=== PATIENT | female | born 1985 | race Caucasian/White ===

== ENCOUNTER 2023-05-21 21:06 | Outpatient (REF) | payer BC, OTHER, SELFPAY ==
[2023-05-27 11:09] LABS: Age Gdln ACOG Testing Note (.); HPV Aptima Negative (Negative); IGP, Aptima HPV, rfx 16/18,45 Note (.)
== END 2023-05-21 21:07 | disposition home or self-care (01) ==
LOC: LAB 21:06
PROVIDERS: Visit Provider Physician Assistant
DX: Z01.419 Encounter for gynecological examination (general) (routine) without abnormal findings (principal)
CPT/HCPCS: 87624; G0145

== ENCOUNTER 2024-06-02 19:48 | Outpatient (REF) | payer BC, OTHER, SELFPAY ==
--- OUTSIDE RECORDS SUMMARY | 2024-06-02 19:57 | XMS_ITS | CCD ---
Author Organization [facility] CliniSymo Care Team Providers Care Meat Packer Name Role Phone NON STAFF Primary Care Unavailable Kee Morales Admitting Unavailable Kee Morales Attending Unavailable MARBELLA ., DR URBAN Attending Unavailable REQUEST, DR PROCTOR LISTED Primary Care Unavaila ble MARBELLA ., DR URBAN Consulting Unavailable MARBELLA ., DR URBAN Admitting Unavailable MARBELLA ., DR URBAN Attending Unavailable MARBELLA ., DR URBAN Consulting Unavailable REQUEST, DR PROCTOR LISTED Primary Care Unavaila ble MARBELLA ., DR URBAN Admitting Unavailable MARBELLA ., DR URBAN Attending Unavailable MARBELLA ., DR URBAN Consulting Unavailable REQUEST, NONE LISTED Primary Care Unavaila ble MARBELLA ., DR URBAN Admitting Unavailable ZIEBER, DR SHERRY Snow Consulting Unavailable MARBELLA ., DR URBAN Attending Unavailable MARBELLA ., DR URBAN Consulting Unavailable REQUEST, NONE LISTED Primary Care Unavaila ble MARBELLA ., DR URBAN Admitting Unavailable MARBELLA ., DR URBAN Attending Unavailable HAPPY, DR ANASTACIO Rao Consulting Unavailable REQUEST, DR PROCTOR LISTED Primary Care Unavaila ble MARBELLA ., DR URBAN Admitting Unavailable MARBELLA ., DR URBAN Consulting Unavailable MARBELLA ., DR URBAN Attending Unavailable REQUEST, DR PROCTOR LISTED Primary Care Unavaila ble MARBELLA ., DR URBAN Admitting Unavailable MARBELLA ., DR URBAN Attending Unavailable REQUEST, DR PROCTOR LISTED Primary Care Unavaila ble MARBELLA ., DR URBAN Consulting Unavailable MARBELLA ., DR URBAN Admitting Unavailable MARBELLA ., DR URBAN Attending Unavailable REQUEST, NONE LISTED Primary Care Unavaila ble MARBELLA ., DR URBAN Consulting Unavailable MARBELLA ., DR URBAN Admitting Unavailable TORSTEN II, ANÍBAL Consulting Unavailable ROBI SANCHES Consulting Unavailable TANYA CHONG Attending Unavailable TANYA CHONG Attending Unavailable Problems Active Problems Problem Classification Problem Date Documented Da te Episodic/Chronic Abdominal pain (4 sources) Pelvic and perineal pain; Translations: [PELVIC AND PERINEAL PAIN] Onset: 04-11-2022 Episodic Deficiency and other anemia (1 source) Anemia, unspecified; Translations: [ANEMIA UNSPECIFIED] Onset: 04-16-2022 Episodic Ovarian cyst (5 sources) Unspecified ovarian cyst, left side; Translations: [UNSPECIFIED OVARIAN CYST LEFT SIDE] Onset: 02-28-2022 Episodic Unclassified (1 source) CONTACT W/AND (SUSP) EXPOS COVID-19; Translations: [CONTACT W/AND (SUSP) EXPOS COVID-19] Onset: 04-12-2022 Past or Other Problems Problem Classification Problem Date Documented Date Episodic/Chronic Immunizations and screening for infectious disease (5 sources) Encounter for screening for human papillomavirus (HPV); Translations: [Encounter for screening for infections with a predominantly sexual mode of transmission] Onset: 12-19-2021 Episodic Other female genital disorders (1 source) Other specified noninflammatory disorders of vagina; Translations: [OTH SPEC NONINFLAMMATORY D/O VAGINA] Onset: 12-20-2021 Episodic Other screening for suspected conditions (not mental disorders or infectious disease) (4 sources) Encounter for screening for malignant neoplasm of cervix; Translations: [ENC SCREENING MALIG NEOPLASM CERV] Onset: 03-04-2022 Episodic Results Test Name Value Interpretation Reference Range Facility CBC AUTO DIFFon 04-11-2022 BASO # 0.0 103/ul Normal 0.0-0.1 [facility] Comment on above: Performed By: #### C BC #### [facility] [address] [place] [address] Dr. Arthur Thompson Basophils/100 WBC (Bld) 0.5 % Normal 0.2-2.0 [facility] Comment on above: Performed By: #### C BC #### [facility] [address] [place] [address] Dr. Arthur Thompson EO # 0.3 103/ul Normal 0.0-0.7 [facility] Comment on above: Performed By: #### C BC #### [facility] [address] [place] [address] Dr. Arthur Thompson Eosinophils/100 WBC (Bld) 4.2 % Normal 0.9-7.0 [facility] Comment on above: Performed By: #### C BC #### [facility] [address] [place] [address] Dr. Arthur Thompson Erythrocyte distribution width (RBC) [Ratio] 13.4 % Normal 11.0-15.0 [facility] Comment on above: Performed By: #### C BC #### [facility] [address] [place] [address] Dr. Arthur Thompson Hematocrit (Bld) [Volume fraction] 43.6 % Normal 36.0-48.0 [facility] Comment on above: Performed By: #### C BC #### [facility] [address] [place] [address] Dr. Arthur Thompson Hemoglobin (Bld) [Mass/Vol] 13.9 g/dL Normal 12.0-16.0 [facility] Comment on above: Performed By: #### C BC #### [facility] [address] [place] [address] Dr. Arthur Thompson IG # 0.03 10e3/ul Normal 0.00-0.03 [facility] Comment on above: Performed By: #### C BC #### [facility] [address] [place] [address] Dr. Arthur Thompson IG % 0.4 % Normal 0.0-0.5 [facility] Comment on above: Performed By: #### C BC #### [facility] [address] [place] [address] Dr. Arthur Thompson LYMPH # 3.2 103/ul Normal 1.2-3.8 [facility] Comment on above: Performed By: #### C BC #### [facility] [address] [place] [address] Dr. Arthur Thompson Lymphocytes/100 WBC (Bld) 39.1 % Normal 20.5-60.0 [facility] Comment on above: Performed By: #### C BC #### [facility] [address] [place] [address] Dr. Arthur Thompson MANUAL DIFF REQ NO Normal [facility] Comment on above: Performed By: #### C BC #### [facility] [address] [address] [address] Arthur Thompson MCH (RBC) [Entitic mass] 27.7 pg Normal 26.7-34.0 [facility] Comment on above: Performed By: #### C BC #### [facility] [address] [address] [address] Arthur Thompson MCHC (RBC) [Mass/Vol] 31.9 g/dL Normal 29.9-35.2 [facility] Comment on above: Performed By: #### C BC #### [facility] [address] [place] [address] Dr. Arthur Thompson MCV (RBC) [Entitic vol] 86.9 fL Normal 81.0-99.0 [facility] Comment on above: Performed By: #### C BC #### [facility] [address] [place] [address] Dr. Arthur Thompson MONO # 0.5 103/ul Normal 0.3-0.8 [facility] Comment on above: Performed By: #### C BC #### [facility] [address] [place] [address] Dr. Arthur Thompson Monocytes/100 WBC (Bld) 6.6 % Normal 1.7-12.0 [facility] Comment on above: Performed By: #### C BC #### [facility] [address] [place] [address] Dr. Arthur Thompson NEUT # 4.0 103/ul Normal 1.4-6.5 [facility] Comment on above: Performed By: #### C BC #### [facility] [address] [place] [address] Dr. Arthur Thompson Neutrophils/100 WBC (Bld) 49.2 % Normal 43.0-75.0 [facility] Comment on above: Performed By: #### C BC #### [facility] [address] [place] [address] Dr. Arthur Thompson Platelet mean volume (Bld) [Entitic vol] 9.5 fL Normal 9.5-13.5 [facility] Comment on above: Performed By: #### C BC #### [facility] [address] [address] [address] Arthur Thompson PLT 307 103/ul Normal 150-450 [facility] Comment on above: Performed By: #### C BC #### [facility] [address] [place], [place] [address] Dr. Arthur Thompson RBC 5.02 106/ul Normal 4.20-5.40 [facility] Comment on above: Performed By: #### C BC #### [facility] [id number] Arthur Thompson WBC 8.2 103/ul Normal 4.0-11.0 [facility] Comment on above: Performed By: #### C BC #### [facility] [address] [address] [address] Arthur Thompson PREG HCG QUALon 04-11-2022 , QUAL Negative Normal NEGATIVE [facility] Comment on above: Performed By: #### C VDTBH #### [facility] [address] [address] [address] Arthur Thompson Covid-19 PCR ([facility]on SARS-CoV-2 (COVID-19) RNA NEREYDA+probe Ql (Unsp spec) Not detected Normal NOT DETECTED [facility] Comment on above: Result Comment: This test is not yet approved or cleared by the [place] FDA. When there are no FDA-approved or cleared tests available, and other criteria are met, FDA can make tests available under an emergency access mechanism called an Emergency Use Authorization (EUA). The EUA for this test is supported by the [place] of Health and Human Service's (HHS's) declaration that circumstances exist to justify the emergency use of in vitro diagnostics for the detection and/or diagnosis of the virus that causes COVID-19. This EUA will remain in effect (meaning this test can be used) for the duration of the COVID-19 declaration justifying emergency of IVDs, unless it is terminated or revoked by FDA (after which the test may no longer be used). When diagnostic testing is negative, the possibility of a false negative should be considered in the context of a patient's recent exposures and the presence of clinical signs and symptoms consistent with SARS-CoV-2. Performed By: #### C VDTBH #### [facility] [address] [place] [address] Dr. Arthur Thompson PAP ACOG PANEL 2: 30 to 65on 03-13-2022 . . Normal [facility] Comment on above: Result Comment: Perf ormed at: WB Performed By: #### [id number] #### [facility] [address] [place] [address] Dr. Arthur Thompson Age Gdln ACOG Testing 30-65 Normal [facility] Comment on above: Performed By: #### [id number] #### [facility] [address] [place] [address] Dr. Arthur Thompson DIAGNOSIS: Comment Normal [facility] Comment on above: Result Comment: NEGA TIVE FOR INTRAEPITHELIAL LESION OR MALIGNANCY. THIS SPECIMEN WAS RESCREENED PART OF OUR AUDIOVISUAL EQUIPMENT OPERATOR PROGRAM. Performed at: WB Performed By: #### [id number] #### [facility] [address] [place] [address] Dr. Arthur Thompson HPV Aptima Negative Normal Negative [facility] Comment on above: Result Comment: This nucleic acid amplification test detects fourteen high-risk HPV types (16,18,31,33,35,39,45,51,52,56,58,59,66,68) without differentiation. Performed at: =G Performed By: #### [id number] #### [facility] [address] [place] [address] Dr. Arthur Thompson HPV Genotype Reflex Comment Normal [facility] Comment on above: Result Comment: Crit eria not met, HPV Genotype not performed. Performed at: WB Performed By: #### [id number] #### [facility] [address] [place] [address] Dr. Arthur Thompson Methodology: Comment Normal [facility] Comment on above: Result Comment: This liquid based ThinPrep(R) pap test was screened with the use of an image guided system. Performed at: WB Performed By: #### [id number] #### [facility] [address] [place] [address] Dr. Arthur Thompson Note: Comment Normal [facility] Comment on above: Result Comment: The Pap smear is a screening test designed to aid in the detection of premalignant and malignant conditions of the uterine cervix. It is not a diagnostic procedure and should not be used as the sole means of detecting cervical cancer. Both false-positive and false-negative reports do occur. . Performed at: WB Performed By: #### [id number] #### [facility] [address] [place] [address] Dr. Arthur Thompson Performed by: Comment Normal [facility] Comment on above: Result Comment: Linda Graham, Textile Technologist Performed at: WB Performed By: #### [id number] #### [facility] [address] [place] [address] Dr. Arthur Thompson QC reviewed by: Comment Normal [facility] Comment on above: Result Comment: Flash Polo, Textile Technologist Performed at: WB Performed By: #### [id number] #### [facility] [address] [place] [address] Dr. Arthur Thompson Specimen adequacy: Comment Normal [facility] Comment on above: Result Comment: Sati sfactory for evaluation. Endocervical and/or squamous metaplastic cells (endocervical component) are present. Performed at: WB Performed By: #### [id number] #### [facility] [address] [place] [address] Dr. Arthur Thompson AFP (TUMOR MARKER)on 022 AFP, Serum, Tumor Marker 2.4 ng/mL Normal 0.0-6.4 [facility] Comment on above: Result Comment: [employer] Electrochemiluminescence Immunoassay (ECLIA) . Values obtained with different assay methods or kits cannot be used interchangeably. Results cannot be interpreted as absolute evidence of the presence or absence of malignant disease. . This test is not interpretable in females. Performed By: #### A FP. #### [facility] [address] [place] [address] Dr. Arthur Thompson CA 125on 03-01-2022 Cancer Antigen (CA) 125 25.9 U/mL Normal 0.0-38.1 [facility] Comment on above: Result Comment: [employer] Electrochemiluminescence Immunoassay (ECLIA) . Values obtained with different assay methods or kits cannot be used interchangeably. Results cannot be interpreted as absolute evidence of the presence or absence of malignant disease. Performed By: #### C A 125 #### [facility] [address] [place] [address] Dr. Arthur Thompson CEAon 03-01-2022 CEA 1.0 ng/mL Normal 0.0-4.7 [facility] Comment on above: Result Comment: Nons mokers <3.9 Smokers <5.6 . [facility] Electrochemiluminescence Immunoassay (ECLIA) . Values obtained with different assay methods or kits cannot be used interchangeably. Results cannot be interpreted as absolute evidence of the presence or absence of malignant disease. Performed By: #### C VDTBH #### [facility] [address] [place] [address] Dr. Arthur Thompson HCG QUANT TUMOR MARKERon HCG QNT TUMOR MARKER <1 Normal [facility] Comment on above: Result Comment: Fema le (Non-) 0 - 5 (Postmenopausal) 0 - 8 . [facility] Electrochemiluminescence Immunoassay (ECLIA) . The [employer] HCG + beta assay recognizes the holo-hormone, human chorionic gonadotropin (hCG), nicked forms of hCG, the beta-core fragment and the free beta-subunit in human serum and plasma. . Results obtained with different test methods or kits cannot used interchangeably. This assay is intended for the early detection of . The result should not be used for treatment or for diagnostic purposes without confirmation of the diagnosis by another medically established diagnostic product or procedure. . This test was developed and its performance characteristics determined by [employer]. It has not been cleared or approved by the Food and Drug Administration for use as a tumor marker. . This test is not interpretable as a tumor marker in females. Performed By: #### H CGTMOR #### [facility] [address] [place] [address] Dr. Arthur Thompson LDHon 02-28-2022 LDH 204 U/L Normal 81-234 [facility] Comment on above: Performed By: #### L #### [facility] [address] [address] [address] Arthur Thompson US PELVIS AND TRANSVAGon US PELVIS AND TRANSVAG EXAMINATION: US PELVIS AND TRANSVAG HISTORY: Cyst of left ovary , follow-up COMPARISON: Ultrasound pelvis 12/25/2021 TECHNIQUE: Transabdominal and transvaginal sonographic examination. FINDINGS: UTERUS: Normal size and appearance. A few calcifications within cervix, likely dystrophic. Uterus size: 9.3 x 5.8 x 4.5 cm ENDOMETRIUM: IUD within endometrial cavity. Normal homogeneous appearance of endometrium. Endometrial thickness: 8 mm RIGHT OVARY: Contains a small benign-appearing cyst, 2.0 cm cm. Duplex Doppler demonstrates normal waveform and flow; resistive index 0.6. Ovary size: 2.8 x 2.7 x 2.1 cm LEFT OVARY: Contains a multicystic complex 5.7 x 6.2 x 2.9 cm area. Duplex Doppler demonstrates normal waveform and flow; resistive index 0.5. Ovary size: 6.1 x 6.3 x 3.8 cm CUL-DE-SAC: Unremarkable. No significant free fluid. BLADDER: Unremarkable. OTHER: None. IMPRESSION: 1. Interval increase in size of a large multicystic complex mass versus cyst within left ovary, now 6.2 cm. Consider additional follow-up ultrasound in 6 weeks to evaluate for regression. 2. IUD within endometrial cavity. Electronically authenticated by: SHERRY ROSE Date: 2022-02-13 15:54 Normal [facility] US PELVIS AND TRANSVAGon US PELVIS AND TRANSVAG EXAMINATION: US PELVIS AND TRANSVAG HISTORY: Pelvic and perineal pain COMPARISON: No relevant comparison available. FINDINGS: Transabdominal and transvaginal images The uterus is normal in size, contour and myometrial echotexture measuring 9.2 x 6.1 x 4.7 cm, anteflexed. The endometrium measures 0.7 cm. Linear hyperechogenicity within the intrauterine cavity consistent with a normally positioned IUD. 7 mm area of hyperechogenicity along the left endometrium possibly calcification. The right ovary is normal in appearance measuring 2.8 x 2.1 x 2.2 cm. Normal color and Doppler flow. Normal resistive index of 0.55. The left ovary measures 3.7 x 2.5 x 2.6 cm. Complex cystic area measuring 2.2 x 2.2 x 2.1 cm. Normal color and Doppler flow in the ovary. Normal resistive index of 0.49 IMPRESSION: Normally positioned IUD 2.2 cm complex left ovarian cyst Electronically authenticated by: ANASTACIO NAYAK Date: 2021-12-25 17:53 Normal [facility] CHLAMYDIA/GONOCOCCUS NEREYDA ( AB/URINE/PAPon 12-22-2021 Chlamydia trachomatis, NEREYDA Negative Normal Negative [facility] Comment on above: Performed By: #### C T/NGNA #### [facility] [address] [place] [address] Dr. Arthur Thompson Neisseria gonorrhoeae, NEREYDA Negative Normal Negative [facility] Comment on above: Performed By: #### C T/NGNA #### [facility] [address] [place] [address] Dr. Arthur Thompson VAGINITIS/VAGINOSIS DNA PROB Jerardo 12-21-2021 Josi species Negative Normal Negative [facility] Comment on above: Performed By: #### V AGINT #### [facility] [address] [address] [address] Arthur Thompson Gardnerella vaginalis Positive Abnormal Negative [facility] Comment on above: Performed By: #### V AGINT #### [facility] [address] [place] [address] Dr. Arthur Thompson Trichomonas vaginalis Negative Normal Negative [facility] Comment on above: Performed By: #### V AGINT #### [facility] [address] [place] [address] Dr. Arthur Thompson Ambulatory Patient Education on 05-31-2020 Ambulatory Patient Education Patient Education Materials Name: Radha Gold Current Date: 05/31/2020 15:18:50 [place] : 1985 The following sheet(s) are the Patient Education Leaflets for Radha Gold Normal [facility] XR Ankle 3 Views Lefton 03-1 XR Ankle 3 Views Left CLINICAL HISTORY: Pain. Twisting injury. EXAMINATION: Frontal, lateral and oblique images of the left foot and ankle were obtained. FINDINGS: There is no fracture or dislocation. Ankle mortise is intact. Remaining joint spaces are maintained. An os navicularis is noted. There is no acute fracture or dislocation. There is no suspicious osseous lesion. There is soft tissue swelling about the lateral malleolus. IMPRESSION: No acute osseous abnormality. Final Dictated by: Burak Kline MD Dictated DT/TM: 05/31/2020 3:41 pm Signed by: Burak Kline MD Signed (Electronic Signature): 05/31/2020 3:43 pm (If Report Is Signed, Electronically Signed in Other Vendor System) Normal [facility] XR Foot 3 Views Lefton 05-31 XR Foot 3 Views Left CLINICAL HISTORY: Pain. Twisting injury. EXAMINATION: Frontal, lateral and oblique images of the left foot and ankle were obtained. FINDINGS: There is no fracture or dislocation. Ankle mortise is intact. Remaining joint spaces are maintained. An os navicularis is noted. There is no acute fracture or dislocation. There is no suspicious osseous lesion. There is soft tissue swelling about the lateral malleolus. IMPRESSION: No acute osseous abnormality. Final Dictated by: Burak Kline MD Dictated DT/TM: 05/31/2020 3:43 pm Signed by: Burak Kline MD Signed (Electronic Signature): 05/31/2020 3:43 pm (If Report Is Signed, Electronically Signed in Other Vendor System) Normal [facility] Comprehensive Metabolic Empo n 07-15-2018 Albumin mass conc 4.1 g/dL Normal 3.2-5.5 [facility] Comment on above: Performed By: #### E BS CMP, LIPID, LDLD #### [facility] [address] Albumin/Globulin mass ratio 1.6 {ratio} Normal [facility] Comment on above: Performed By: #### E BS CMP, LIPID, LDLD #### [facility] [address] ALP enzyme act/vol 51 U/L Normal 32-92 [facility] Comment on above: Performed By: #### E BS CMP, LIPID, LDLD #### [facility] [address] ALT enzyme act/vol 30 U/L Normal 10-60 [facility] Comment on above: Performed By: #### E BS CMP, LIPID, LDLD #### [facility] [address] [place] [address] AST enzyme act/vol 22 U/L Normal 10-42 [facility] Comment on above: Performed By: #### E BS CMP, LIPID, LDLD #### [facility] [address] [place] [address] Bilirubin mass conc 0.6 mg/dL Normal 0.3-1.2 [facility] Comment on above: Performed By: #### E BS CMP, LIPID, LDLD #### [facility] [address] [place] [address] Calcium mass conc 9.2 mg/dL Normal 8.2-10.2 [facility] Comment on above: Performed By: #### E BS CMP, LIPID, LDLD #### [facility] [address] [place] [address] Chloride molar conc 104 mmol/L Normal 95-114 [facility] Comment on above: Performed By: #### E BS CMP, LIPID, LDLD #### [facility] [address] [place] [address] CO2 molar conc 19.4 mmol/L Low 22.0-30.0 [facility] Comment on above: Performed By: #### E BS CMP, LIPID, LDLD #### [facility] [address] [place] [address] [place] Creatinine mass conc 0.63 mg/dL Normal 0.44-1.03 [facility] Comment on above: Performed By: #### E BS CMP, LIPID, LDLD #### [facility] [address] [place] [address] [place] Estimated GFR ( Demetra > 60 Normal [facility] Comment on above: Result Comment: GFR estimated reference range: According to KDOQI guidelines, <60 ml/min/1.73m2 is sufficient to diagnose a patient with chronic kidney disease. Performed By: #### E BS CMP, LIPID, LDLD #### [address] Estimated GFR (Non- Am > 60 Normal [facility] Comment on above: Performed By: #### E BS CMP, LIPID, LDLD #### [address] Globulin mass conc (S) 2.6 g/dL Normal [facility] Comment on above: Performed By: #### E BS CMP, LIPID, LDLD #### [address] Glucose mass conc 81 mg/dL Normal 70-100 [facility] Comment on above: Performed By: #### E BS CMP, LIPID, LDLD #### [address] Potassium molar conc 4.2 mmol/L Normal 3.5-5.1 [facility] Comment on above: Performed By: #### E BS CMP, LIPID, LDLD #### [address] Protein mass conc 6.7 g/dL Normal 6.1-7.9 [facility] Comment on above: Performed By: #### E BS CMP, LIPID, LDLD #### [place] [address] [place] Sodium molar conc 137 mmol/L Normal 136-146 [facility] Comment on above: Performed By: #### E BS CMP, LIPID, LDLD #### [place] [address] [place] Urea nitrogen mass conc 9 mg/dL Normal 9-23 [facility] Comment on above: Performed By: #### E BS CMP, LIPID, LDLD #### [address] LDL Cholesterol Measuredon 0 07-15-2018 LDL Cholesterol Measured 54 mg/dL Normal 0-100 [facility] Comment on above: Result Comment: LDL ATP III CLASSIFICATION LDL less than 100 mg/dL Optimal LDL 100-129 mg/dL Near or above optimal LDL 130-159 mg/dL Borderline high LDL 160-189 mg/dL High LDL greater than 189 mg/dL Very high PERFORMED BY: [place] [address] PATHOLOGIST RULING MACHINE FEEDER BREEZY VILLAGRAN M.D. Performed By: #### E BS CMP, LIPID, LDLD #### [facility] [address] Lipid Panelon 07-15-2018 Cholesterol in HDL mass conc 28 mg/dL Low 35-85 [facility] Comment on above: Result Comment: HDL CHOL ATP-III CLASSIFICATION Cardiovascular Risk HDL > or equal to 60 mg/dL LOW HDL < 40 mg/dL HIGH Performed By: #### E BS CMP, LIPID, LDLD #### [facility] [address] [place] [address] [place] Cholesterol mass conc 139 mg/dL Low 140-200 [facility] Comment on above: Result Comment: Chol less than 200 mg/dl low risk Chol 201-239 mg/dl borderline risk Chol 240 mg/dl and greater high risk Performed By: #### E BS CMP, LIPID, LDLD #### [facility] [address] Cholesterol.total /Cholesterol in HDL mass ratio 5.0 {ratio} Normal <5.0 [facility] Comment on above: Performed By: #### E BS CMP, LIPID, LDLD #### [facility] [address] LDL Cholesterol,Calcu lated Test not performed Normal 0-100 [facility] Comment on above: Performed By: #### E BS CMP, LIPID, LDLD #### [facility] [address] [place] [address] [place] Triglyceride w/Reflex 525 mg/dL High 35-149 [facility] Comment on above: Result Comment: TRIG ATP III CLASSIFICATION TRIG less than 150 mg/dL Normal TRIG 150-199 mg/dL Borderline high TRIG 200-500 mg/dL High TRIG greater than 500 mg/dL Very high Standard traceable to the Center for Disease Conrtrol and Prevention (CDC) test method. If the triglyceride result is greater than 400, LDLC and related calculations cannot be calculated and resulted. Performed By: #### E BS CMP, LIPID, LDLD #### [facility] [address] VLDL CHOLESTEROL Test not performed Normal [facility] Comment on above: Performed By: #### E BS CMP, LIPID, LDLD #### [facility] [address] Encounters Encounter Date Encounter Type Care Provider Facility Start: 05-21-2023 End: 05-21-2023 ambulatory TANYA CHONG Not Available Start: 04-23-2023 End: 04-23-2023 ambulatory TANYA CHONG Not Available Start: 04-12-2022 Encounter for prepro cedural laboratory examination DR RAJNI OSCAR . [facility] Start: 04-11-2022 End: 04-11-[address] RAJNI OSCAR . Facility:[facility] Start: 04-06-2022 End: 04-07-[address] RAJNI OSCAR . Facility:[facility] Start: 04-06-2022 End: 04-07-2022 Encounter for preprocedural laboratory examination DR RAJNI OSCAR . Facility:[facility] Start: 04-05-2022 Encounter for other preprocedural examination DR RAJNI OSCAR . [facility] Start: 04-02-2022 End: 04-03-[address] RAJNI OSCAR . Facility:[facility] Start: 04-02-2022 End: 04-03-2022 Encounter for other preprocedural examination DR RAJNI OSCAR . Facility:[facility] Start: 03-04-2022 End: 03-04-[address] RAJNI OSCAR . Facility:[facility] Start: 02-28-2022 End: 03-01-[address] RAJNI OSCAR . Facility:[facility] Start: 02-13-2022 End: 02-14-[address] RAJNI OSCAR . Facility:[facility] Start: 12-25-2021 End: 12-26-[address] RAJNI OSCAR . Facility:[facility] Start: 12-19-2021 End: 12-19-[address] RAJNI OSCAR . Facility: Start: 07-15-2018 End: 07-15-2018 Patient encounter procedure NON STAFF Facility:[facility] Payers Date Payer Category [facility] [id number] 2018 Self-pay 1986 Unknown [id number] 1986 Unknown [id number] 1986 Unknown [id number] 1986 Unknown [id number] 1986 Unknown [id number] 1986 Unknown [id number] 1986 Unknown [id number] 1986 Unknown [id number] 1986 Unknown [id number] 1986 Unknown [id number] 1959 [employer] ( and others) [id number] 1959 Unknown [id number] 1959 Unknown [id number] Clinical Note 04-11-2022 Note Date & Type Note Facility 04-11-2022 Note OPERATIVE NOTE OPERATION DATE: 04/11/2022 PROCEDURE: Diagnostic laparoscopy. PREOPERATIVE DIAGNOSIS: Pelvic pain, left ovarian cyst. POSTOPERATIVE DIAGNOSIS: Pelvic pain, left ovarian cyst. ANESTHESIA: General. SURGEON: Rajni Oscar D.O. [employer] SENSING SCIENTIST: ZOE Torrez URINE OUTPUT: Yellow and clear. BLOOD LOSS: 5 mL. SPECIMEN: None. FINDINGS: Normal appearing ovaries, uterus and tubes. No gross evidence of endometriosis. Normal appearing appendix. PROCEDURE: The patient was taken back to the Operating Room where she was placed in dorsal lithotomy position after given general anesthesia. The patient was prepped and draped in normal sterile fashion. A sponge stick was placed into the patient's vagina. Attention was turned to the patient's abdomen, where a small umbilical incision was made. The fascia was tented using Rochelle clamps and the fascia was entered sharply. Confirmation of intra-abdominal placement of the 10 mm port was confirmed under direct visualization using a laparoscope. The patient's abdomen was then insufflated using CO2 gas with approximately 4 liters. A second port was placed left laterally; this was done under direct visualization with a 5 mm port. Survey of the patient's abdomen demonstrated normal liver and gallbladder. Survey of the patient's pelvic anatomy demonstrated normal appearing ovaries and tubes as well as normal appearing uterus. No endometrial implants could be noted, no evidence of any pelvic disease was seen, normal appearing pelvic cavity. All instruments were removed from the patient's abdomen. The patient's abdomen was desufflated of CO2 gas. The patient tolerated the procedure well. Sponge stick was removed from the patient's vagina. The patient's infraumbilical fascia was closed using #0 Vicryl on a GI needle. The patient's skin was closed laterally and infraumbilically using 4-0 Vicryl. The patient tolerated the procedure well. Sponge, lap and needle counts were correct x 2. The patient was taken to Recovery Room in stable condition. ? [facility] Summary Purpose Family History No Family History Records FoundNo Family History Records FoundNo Family History Records FoundNo Family History Records Found Advance Directives No Advanced Directives Records FoundNo Advanced Directives Records FoundNo Advanced Directives Records FoundNo Advanced Directives Records Found Additional Source Comments INFORMATION SOURCE (unrecogn ized section and content) DATE CREATED AUTHOR 07/16/[address] [facility] DATE CREATED AUTHOR AUTHOR'S ORGANIZ ATION 06/01/2020 [facility] DATE CREATED AUTHOR AUTHOR'S ORGANIZ ATION 07/12/2022 [facility] DATE CREATED AUTHOR AUTHOR'S SHASHANKSHERINE ATION 05/29/2023 [facility] FOR RECORDS PERTAINING TO PATIENTS WHO ARE OR HAVE BEEN ENROLLED IN A CHEMICAL DEPENDENCY/SUBSTANCEABUSE PROGRAM, SOME INFORMATION MAY BE OMITTED. This clinical summary was aggregated from multiple sources. Caution should be exercised in using it in the provision of clinical care. This summary normalizes information from multiple sources, and as a consequence, information in this document may materially change the coding, format and clinical context of patient data. In addition, data may be omitted in some cases. CLINICAL DECISIONS SHOULD BE BASED ON THE PRIMARY CLINICAL RECORDS. [facility] [employer] provides no warranty or guarantee of the accuracy or completeness of information in this document.
[2024-06-07 15:08] LABS: Age Gdln ACOG Testing Note (.); HPV Aptima Negative (Negative); IGP, Aptima HPV, rfx 16/18,45 Note (.)
== END 2024-06-02 19:49 | disposition home or self-care (01) ==
LOC: LAB 19:48
PROVIDERS: Visit Provider Obstetrics & Gynecology
DX: Z01.419 Encounter for gynecological examination (general) (routine) without abnormal findings (principal)
CPT/HCPCS: 87624; 88175

== ENCOUNTER 2024-06-22 10:45 | Outpatient (REF) | payer BC, OTHER, SELFPAY ==
--- OUTSIDE RECORDS SUMMARY | 2024-06-25 11:05 | XMS_ITS | CCD ---
Author Organization [facility] CliniSymo Care Team Providers Care Government Service Executive Name Role Phone CELESTINA ., DR URBAN Attending Unavailable REQUEST, DR PROCTOR LISTED Primary Care Unavaila ble CELESTINA ., DR URBAN Consulting Unavailable CELESTINA ., DR URBAN Admitting Unavailable CELESTINA ., DR URBAN Attending Unavailable CELESTINA ., DR URBAN Consulting Unavailable REQUEST, DR PROCTOR LISTED Primary Care Unavaila ble CELESTINA ., DR URBAN Admitting Unavailable CELESTINA ., DR URBAN Attending Unavailable CELESTINA ., DR URBAN Consulting Unavailable REQUEST, DR PROCTOR LISTED Primary Care Unavaila ble CELESTINA ., DR URBAN Admitting Unavailable ZIEBER, DR SHERRY Snow Consulting Unavailable CELESTINA ., DR URBAN Attending Unavailable CELESTINA ., DR URBAN Consulting Unavailable REQUEST, DR PROCTOR LISTED Primary Care Unavaila ble CELESTINA ., DR URBAN Admitting Unavailable CELESTINA ., DR URBAN Attending Unavailable OSAGE, DR ANASTACIO Rao Consulting Unavailable REQUEST, DR PROCTOR LISTED Primary Care Unavaila ble CELESTINA ., DR URBAN Admitting Unavailable CELESTINA ., DR URBAN Consulting Unavailable CELESTINA ., DR URBAN Attending Unavailable REQUEST, DR PROCTOR LISTED Primary Care Unavaila ble CELESTINA ., DR URBAN Admitting Unavailable CELESTINA ., DR URBAN Attending Unavailable REQUEST, DR PROCTOR LISTED Primary Care Unavaila ble CELESTINA ., DR URBAN Consulting Unavailable CELESTINA ., DR URBAN Admitting Unavailable CELESTINA ., DR URBAN Attending Unavailable REQUEST, DR PROCTOR LISTED Primary Care Unavaila ble CELESTINA ., DR URBAN Consulting Unavailable CELESTINA ., DR URBAN Admitting Unavailable TORSTEN II, ANÍBAL Consulting Unavailable ROBI SANCHES Consulting Unavailable Unavailable Primary Care Provider Unavailabl e RAJNI OSCAR Attending Unavailable CELESTINA, RAJNI Attending Unavailable Celestina DO, Rajni Attending Provider Rajni Oscar Attending Unavailable Rajni Oscar Admitting Unavailable Medications Current Medications Medication Drug Class(es) Dates Sig (Normalized) Sig (Original) levonorgestrel 0.116339 mg/hr intrauterine system (4 sources) Progestin, Progestin-containin g Intrauterine Device Levonorgestrel (Mirena, 52 MG,) 20 MCG/DAY intrauterine device as directed Intrauterine Active Problems Active Problems Problem Classification Problem Date [...] Test Name Value Interpretation Reference Range Facility [facility] 06-22-2024 L -------- -------- Specimen: [id number] Received: 06/23/24 Status: DIVYA Conley Num: [id number] Spec Type: Surgical Subm Dr: Rajni Oscar Tissues: A Skin-Other than Cyst, tag, debridement or plastic repair (LEFT UNDER BREAST) B Skin-Other than Cyst, tag, debridement or plastic repair (LOWER LEFT BACK) C Skin-Other than Cyst, tag, debridement or plastic repair (LEFT UNDERARM) Procedures: YVONNE/Eugenie, Gross/Nani L4/3 -------- Age/ Patient Sex Location Account Attending Physician -------- Radha Gold 39/F [facility] [id number] Rajni Oscar -------- SPEC NUM: [id number] RECD: 06/23/24 STATUS: DIVYA NUÑEZCitlaly NUM: [id number] BRIGETTE: 06/22/[address]: Rajni Oscar ENTERED: 06/23/24 [facility] DR: Tomasz,Lab SPEC TYPE: Surgical DEPT: [facility] ENTERED BY: [id number] RECV BY: [id number] ORDERED: HE/3, Gross/Micro L4/3 ORDERED: HE/3, Gross/Micro L4/3 Pathological Diagnosis Skin, left under breast, removal: -Benign epidermal inclusion cyst, portions of, to be attached at the base of biopsy -Unremarkable benign epidermis B, skin, lower left back, removal: -Benign compound nevus (only minor junctional component) with evidence of dermal maturation, but is also slightly transected at the base of the biopsy C, skin, left under arm, removal: -Nodular skin tag with incidentally small superimposed intradermal nevus which is otherwise also adequately excised in planes of sections examined Clinical Information Mole removal -------- Specimen: [id number] Received: 06/23/24 Status: DIVYA Conley Num: [id number] Spec Type: Surgical Subm Dr: Rajni Oscar Tissues: A Skin-Other than Cyst, tag, debridement or plastic repair (LEFT UNDER BREAST) B Skin-Other than Cyst, tag, debridement or plastic repair (LOWER LEFT BACK) C Skin-Other than Cyst, tag, debridement or plastic repair (LEFT UNDERARM) Procedures: HE/3, Gross/Micro L4/3 -------- Patient: AsifRadha [id number] (Continued) -------- Specimen: [id number] Received: 06/23/24 (Continued) Signed (signature on file) FortunatoJulianGareth Thompson MD 06/24/24 1535 -------- Specimen: [id number] Received: 06/23/24 Status: DIVYA Jarvis Num: [id number] Spec Type: Surgical Subm Dr: Rajni Oscar Tissues: A Skin-Other than Cyst, tag, debridement or plastic repair (LEFT UNDER BREAST) B Skin-Other than Cyst, tag, debridement or plastic repair (LOWER LEFT BACK) C Skin-Other than Cyst, tag, debridement or plastic repair (LEFT UNDERARM) Procedures: Bernie URENA/Nani L4/3 -------- Patient: Radha Gold [id number] (Continued) -------- Specimen: [id number] Received: 06/23/24-5 (Continued) Gross Description Part A is received in formalin labeled with the patients name, date of , and skin mole left under breast is a slade-castaneda, wrinkled, 0.5 cm in diameter by 1 cm in depth punch biopsy of skin. The specimen is inked black, bisected, and entirely submitted in a single cassette. Fixation Time: Time specimen extracted: 1414 Time specimen placed in formalin: 1414 Cold ischemic time: Less than 1 minute Total fixation time: 27 hours and 30 minutes (1, ns, [id number] A) JG Part B is received in formalin labeled with the patients name, date of , and lower left back is a castaneda-brown, finely granular, 0.8 cm in greatest dimension polypoid-like portion of skin. The specimen is inked black at the apparent point of attachment, trisected, and entirely submitted in a single cassette. (1, ns, [id number] B) JG Part C is received in formalin labeled with the patients name, date of , and left underarm is a slade-castaneda, wrinkled, 0.6 cm in greatest dimension polypoid-like portion of skin. The specimen is inked black at the apparent point of attachment, bisected, and entirely submitted in a single cassette. Fixation Time: Time specimen extracted: 1414 Time specimen placed in formalin: 1414 Cold ischemic time: Less than 1 minute Total fixation time: 27 hours and 30 minutes (1, ns, [id number] C)JG Microscopic Description Microscopic examination is performed CPT Codes (more content not included)... Normal [facility] IGP,APTIMA HPV,AGE GDLNon AGE GDLN ACOG TESTING Note . [facility] Comment on above: TESTS RESULT FLAG UNITS REF RANGE LAB Clinician Provided Cytology Information Source.............Cervix;Endocervix No. of containers..01 ThinPrep Vial Age Algo ACOG Amie... FLAG LEGEND: L-Low Normal,H-High Normal,LL-Alert Low,HH-Alert High <-Panic Low,>-Panic High,A-Abnormal,AA-Critical Abnormal Performed at: 01 =[address] [id number] Soheila Gold MD, HPV APTIMA Negative Negative [facility] Comment on above: This nucleic acid amplification test det ects fourteen high- risk HPV types (16,18,31,33,35,39,45,51,52,56,58,59,66,68) without differentiation. Performed at: =[address] [id number] Belly Packer: Soheila Gold MD, Phone: [phone] Performed at: [address] [id number] Belly Packer: Soheila Gold MD, Phone: [phone] IGP, APTIMA HPV, RFX 16/18,45 Note . [facility] Comment on above: TESTS RESULT FLAG UNITS REF RANGE LAB DIAGNOSIS: 02 NEGATIVE FOR INTRAEPITHELIAL LESION OR MALIGNANCY. Specimen adequacy: 02 Satisfactory for evaluation. Endocervical and/or squamous metaplastic cells (endocervical component) are present. Performed by: 02 Martine Martinez Park Recreation Manager (ASCP) . 02 Note: Note 02 The Pap smear is a screening test designed to aid in the detection of premalignant and malignant conditions of the uterine cervix. It is not a diagnostic procedure and should not be used as the sole means of detecting cervical cancer. Both false-positive and false-negative reports do occur. Test Methodology: Note 02 This liquid based ThinPrep(R) pap test was screened with the use of an image guided system. HPV Genotype Reflex Note 02 Criteria not met, HPV Genotype not performed. FLAG LEGEND: L-Low Normal,H-High Normal,LL-Alert Low,HH-Alert High <-Panic Low,>-Panic High,A-Abnormal,AA-Critical Abnormal Performed at: 02 [facility] [address] [phone] Soheila Gold MD, BRUSH-SPATULA [facility]O DIFFon 04-11-2022 BASO # 0.0 103/ul Normal 0.0-0.1 [facility] Comment on above: Performed By: #### CBC #### [facility] [address] [place] [address] Dr. Arthur Thompson Basophils/100 WBC (Bld) 0.5 % Normal 0.2-2.0 [facility] Comment on above: Performed By: #### CBC #### [facility] [address] [place] [address] Dr. Arthur Thompson EO # 0.3 103/ul Normal 0.0-0.7 [facility] Comment on above: Performed By: #### CBC #### [facility] [address] [place] [address] Dr. Artuhr Thompson Eosinophils/100 WBC (Bld) 4.2 % Normal 0.9-7.0 [facility] Comment on above: Performed By: #### CBC #### [facility] [address] [place] [address] Dr. Arthur Thompson Erythrocyte distribution width (RBC) [Ratio] 13.4 % Normal 11.0-15.0 [facility] Comment on above: Performed By: #### CBC #### [facility] [address] [place] [address] Dr. Arthur Thompson Hematocrit (Bld) [Volume fraction] 43.6 % Normal 36.0-48.0 [facility] Comment on above: Performed By: #### CBC #### [facility] [address] [place] [address] Dr. Arthur Thompson Hemoglobin (Bld) [Mass/Vol] 13.9 g/dL Normal 12.0-16.0 [facility] Comment on above: Performed By: #### CBC #### [facility] [address] [place] [address] Dr. Arthur Thompson IG # 0.03 10e3/ul Normal 0.00-0.03 [facility] Comment on above: Performed By: #### CBC #### [facility] [address] [place] [address] Dr. Arthur Thompson IG % 0.4 % Normal 0.0-0.5 [facility] Comment on above: Performed By: #### CBC #### [facility] [address] [place] [address] Dr. Arthur Thompson LYMPH # 3.2 103/ul Normal 1.2-3.8 [facility] Comment on above: Performed By: #### CBC #### [facility] [address] [place] [address] Dr. Arthur Thompson Lymphocytes/100 WBC (Bld) 39.1 % Normal 20.5-60.0 [facility] Comment on above: Performed By: #### CBC #### [facility] [address] [place] [address] Dr. Arthur Thompson MANUAL DIFF REQ NO Normal [facility] Comment on above: Performed By: #### CBC #### [facility] [address] [place] [address] Dr. Arthur Thompson MCH (RBC) [Entitic mass] 27.7 pg Normal 26.7-34.0 [facility] Comment on above: Performed By: #### CBC #### [facility] [address] [place] [address] Dr. Arthur Thompson MCHC (RBC) [Mass/Vol] 31.9 g/dL Normal 29.9-35.2 [facility] Comment on above: Performed By: #### CBC #### [facility] [address] [place] [address] Dr. Arthur Thompson MCV (RBC) [Entitic vol] 86.9 fL Normal 81.0-99.0 [facility] Comment on above: Performed By: #### CBC #### [facility] [address] [place] [address] Dr. Arthur Thompson MONO # 0.5 103/ul Normal 0.3-0.8 [facility] Comment on above: Performed By: #### CBC #### [facility] [address] [place] [address] Dr. Arthur Thompson Monocytes/100 WBC (Bld) 6.6 % Normal 1.7-12.0 [facility] Comment on above: Performed By: #### CBC #### [facility] [address] [place] [address] Dr. Arthur Thompson NEUT # 4.0 103/ul Normal 1.4-6.5 [facility] Comment on above: Performed By: #### CBC #### [facility] [address] [place] [address] Dr. Arthur Thompson Neutrophils/100 WBC (Bld) 49.2 % Normal 43.0-75.0 [facility] Comment on above: Performed By: #### CBC #### [facility] [address] [place] [address] Dr. Arthur Thompson Platelet mean volume (Bld) [Entitic vol] 9.5 fL Normal 9.5-13.5 [facility] Comment on above: Performed By: #### CBC #### [facility] [address] [address] [address] Arthur Thompson PLT 307 103/ul Normal 150-450 [facility] Comment on above: Performed By: #### CBC #### [facility] [address] [address] [address] Arthur Thompson RBC 5.02 106/ul Normal 4.20-5.40 [facility] Comment on above: Performed By: #### CBC #### [facility] [address] [address] [address] Arthur Thompson WBC 8.2 103/ul Normal 4.0-11.0 [facility] Comment on above: Performed By: #### CBC #### [facility] [address] [address] [address] Arthur Thompson PREG HCG QUALon 04-11-2022 , QUAL Negative Normal NEGATIVE [facility] Comment on above: Performed By: #### CVDTBH #### [facility] [address] [address] [address] Arthur Thompson Covid-19 PCR (CVDTB)on SARS-CoV-2 (COVID-19) RNA NEREYDA+probe Ql (Unsp spec) Not detected Normal NOT DETECTED [facility] Comment on above: Result Comment: This test is not yet sumeet roved or cleared by the [place] FDA. When there are no FDA-approved or cleared tests available, and other criteria are met, FDA can make tests available under an emergency access mechanism called an Emergency Use Authorization (EUA). The EUA for this test is supported by the [employer] Operator of Health and Human Service's (HHS's) declaration [...] SARS-CoV-2. Performed By: #### C VDTBH #### [facility] [address] [place] [address] Dr. Arthur Thompson PAP ACOG PANEL 2: 30 to 65on 03-13-2022 . . Normal [facility] Comment on above: Result Comment: Performed at: WB Performed By: #### [id number] #### [facility] [address] [place] [address] Dr. Arthur Thompson Age Gdln ACOG Testing 30-65 Normal [facility] Comment on above: Performed By: #### [id number] #### [facility] [address] [place] [address] Dr. Arthur Thompson DIAGNOSIS: Comment Normal [facility] Comment on above: Result Comment: NEGATIVE FOR INTRAEPITHE LIAL LESION OR MALIGNANCY. THIS SPECIMEN WAS RESCREENED PART OF OUR SPOUT TENDER PROGRAM. Performed at: WB Performed By: #### [id number] #### [facility] [address] [place] [address] Dr. Arthur Thompson HPV Aptima Negative Normal Negative [facility] Comment on above: Result Comment: This nucleic acid amplif ication test detects fourteen high-risk HPV types (16,18,31,33,35,39,45,51,52,56,58,59,66,68) without differentiation. Performed at: =G Performed By: #### [id number] #### [facility] [address] [place] [address] Dr. Arthur Thompson HPV Genotype Reflex Comment Normal [facility] Comment on above: Result Comment: Criteria not met, HPV Ge notype not performed. Performed at: WB Performed By: #### [id number] #### [facility] [address] [place] [address] Dr. Arthur Thompson Methodology: Comment Normal [facility] Comment on above: Result Comment: This liquid based ThinPr ep(R) pap test was screened with the use of an image guided system. Performed at: WB Performed By: #### [id number] #### [facility] [address] [place] [address] Dr. Arthur Thompson Note: Comment Normal [facility] Comment on above: Result Comment: The Pap smear is a scree janae test designed to aid in the detection of premalignant and malignant conditions of the uterine cervix. It is not a diagnostic procedure and should not be used as the sole means of detecting cervical cancer. Both false-positive and false-negative reports do occur. . Performed at: WB Performed By: #### [id number] #### [facility] [address] [address] [address] Arthur Thompson Performed by: Comment Normal [facility] Comment on above: Result Comment: Linda Graham, Cytote chnologist Performed at: WB Performed By: #### [id number] #### [facility] [address] [place] [address] Dr. Arthur Thompson QC reviewed by: Comment Normal [facility] Comment on above: Result Comment: Lona Polo Cyt[employer] nologist Performed at: WB Performed By: #### [id number] #### [facility] [address] [place] [address] Dr. Arthur Thompson Specimen adequacy: Comment Normal [facility] Comment on above: Result Comment: Satisfactory for evaluat ion. Endocervical and/or squamous metaplastic cells (endocervical component) are present. Performed at: WB Performed By: #### [id number] #### [facility] [address] [place] [address] Dr. Arthur Thompson AFP (TUMOR MARKER)on 022 AFP, Serum, Tumor Marker 2.4 ng/mL Normal 0.0-6.4 [facility] Comment on above: Result Comment: [employer] Electr ochemiluminescence Immunoassay (ECLIA) . Values obtained with different assay methods or kits cannot be used interchangeably. Results cannot be interpreted as absolute evidence of the presence or absence of malignant disease. . This test is not interpretable in females. Performed By: #### A FP. #### [facility] [address] [place] [address] Dr. Arthur Thompson CA 125on 03-01-2022 Cancer Antigen (CA) 125 25.9 U/mL Normal 0.0-38.1 [facility] Comment on above: Result Comment: [employer] Electr ochemiluminescence Immunoassay (ECLIA) . Values obtained with different assay methods or kits cannot be used interchangeably. Results cannot be interpreted as absolute evidence of the presence or absence of malignant disease. Performed By: #### C A 125 #### [facility] [address] [place] [address] Dr. Arthur Thompson CEAon 03-01-2022 CEA 1.0 ng/mL Normal 0.0-4.7 [facility] Comment on above: Result Comment: Nonsmokers <3.9 Smokers <5.6 . [employer] Electrochemiluminescence Immunoassay (ECLIA) . Values obtained with different assay methods or kits cannot be used interchangeably. Results cannot be interpreted as absolute evidence of the presence or absence of malignant disease. Performed By: #### C VDTBH #### [facility] [address] [place] [address] Dr. Arthur Thompson HCG QUANT TUMOR MARKERon HCG QNT TUMOR MARKER <1 Normal [facility] Comment on above: Result Comment: Female (Non-) 0 - 5 (Postmenopausal) 0 - [...] developed and its performance characteristics determined by [employer]. It has not been cleared or approved by the Food and Drug Administration for use as a tumor marker. . This test is not interpretable as a tumor marker in females. Performed By: #### H CGTMOR #### [facility] [address] [place] [address] Dr. Arthur Thompson LDHon 02-28-2022 LDH 204 U/L Normal 81-234 [facility] Comment on above: Performed By: #### LDH #### [facility] [address] [address] [address] Arthur Thompson US PELVIS AND TRANSVAGon [...] SHERRY ROSE Date: 2022-02-13 15:54 Normal [facility] US PELVIS AND TRANSVAGon US PELVIS AND [...] ANASTACIO NAYAK Date: 2021-12-25 17:53 Normal [facility] CHLAMYDIA/GONOCOCCUS NEREYDA (SW AB/URINE/PAPon 12-22-2021 Chlamydia trachomatis, NEREYDA Negative Normal Negative [facility] Comment on above: Performed By: #### CT/NGNA #### [facility] [address] [address] [address] Arthur Thompson Neisseria gonorrhoeae, NEREYDA Negative Normal Negative [facility] Comment on above: Performed By: #### CT/NGNA #### [facility] [address] [place] [address] Dr. Arthur Thompson VAGINITIS/VAGINOSIS DNA PROB Jerardo 12-21-2021 Josi species Negative Normal Negative [facility] Comment on above: Performed By: #### VAGINT #### [facility] [address] [address] [address] Arthur Thompson Gardnerella vaginalis Positive Abnormal Negative [facility] Comment on above: Performed By: #### VAGINT #### [facility] [address] [place] [address] Dr. Arthur Thompson Trichomonas vaginalis Negative Normal Negative [facility] Comment on above: Performed By: #### VAGINT #### [facility] [address] [place] [address] Dr. Arthur Thompson Ambulatory Patient Education on 05-31-2020 Ambulatory Patient Education Patient Education Materials Name: Radha Gold Current Date: 05/31/2020 15:18:50 [place] : 1985 The following sheet(s) are the Patient Education Leaflets for Radha Gold [facility] XR Ankle 3 Views Lefton 03 XR Ankle 3 Views Left CLINICAL HISTORY: [...] Electronically Signed in Other Vendor System) Normal [facility] XR Foot 3 Views Lefton 05-31 XR [...] Electronically Signed in Other Vendor System) Normal [facility] Vital Signs Date Time Vital Sign Value Performing Clinician Laxmi ash 06-02-2024 16:16-0500 Body mass index (BMI) [Ratio] 44.86 kg/m2 Vanilla Breeze DO Work Phone: [facility] 06-02-2024 16:16-0500 Body weight 129.91 kg Vanilla Breeze DO Work Phone: [facility] 06-02-2024 16:16-0500 Diastolic blood pressure 82 mm[Hg] [employer] Work Phone: [facility] 06-02-2024 16:16-0500 Systolic blood pressure 120 mm[Hg] Rajni Hugoo DO Work Phone: [facility] Encounters Encounter Date Encounter Type Care Provider Facility Start: 06-22-2024 End: 06-22-2024 ambulatory RAJNI OSCAR Not Available Start: 06-22-2024 End: 06-22-2024 Departed Referred Rajni Hugoo DO Work Phone: [facility] Start: 06-02-2024 End: 06-02-2024 Patient encounter procedure Rajni Celestina DO Work Phone: [facility] Work Phone: Start: 06-02-2024 End: 06-02-2024 Periodic preventive med est patient 18-39 yrs Rajni Beardenzio DO Work Phone: [facility] Comment on above: Well woman exam with routine gynecological exam Start: 06-02-2024 End: 06-02-2024 ambulatory RJANI OSCAR Not Available Start: 06-02-2024 End: 06-02-2024 Bamboo flowsheet Rajni Celestina DO Work Phone: [facility] Start: 06-02-2024 End: 06-07-2024 Bamboo flowsheet Rajni Celestina DO Work Phone: [facility] Start: 06-02-2024 End: 06-07-2024 Clinisync Result Encounter Rajni Huogo DO Work Phone: [facility] Unsolicited Start: 04-12-2022 Encounter for preprocedural laboratory examination DR RAJNI OSCAR . [facility] Start: 04-11-2022 End: 04-11-[address] RAJNI OSCAR . Facility:[facility] Start: 04-06-2022 End: 04-07-[address] RAJNI OSCAR . Facility:[facility] Start: 04-06-2022 End: 04-07-2022 Encounter for preprocedural laboratory examination DR RAJNI OSCAR . Facility:[facility] Start: 04-05-2022 Encounter for other preprocedural examination DR RAJNI OSCAR . [facility] Start: 04-02-2022 End: 04-03-[address] RAJNI OSCAR . Facility: Start: 04-02-2022 End: 04-03-2022 Encounter for other [...] 12-19-[address] RAJNI OSCAR . Facility: Procedures Date Procedure Procedure Detail Performing Clinician Start: 06-02-2024 IGP,APTIMA HPV,AGE GDLN Rajni Oscar DO Work Phone: Plan of Treatment Date Care Activity Detail Author Start: 06-08-2025 End: 06-08-2025 Patient encounter procedure 06/08/2025 4:00 PM EDT Office Visit [facility] [address] [place] [id number] Rajni Oscar DO [address] [place] [address] [facility] Start: 06-22-2024 End: 06-22-2024 Patient encounter procedure 06/22/2024 1:30 PM EDT Procedure Visit [facility] [address] [place] [id number] Rajni Oscar, DO [address] [place] [address] [facility] Start: 06-02-2024 End: 06-02-2024 Patient encounter procedure 06/02/2024 4:00 PM EST Office Visit [facility] [address] [address] Rajni Oscar, DO [address] [facility] [place] [address] [address] Arrived [facility] Comment on above: Arrived Cytology Cervical or vaginal smear or scraping study Pap Smear Pathology and Cytology Routine Well woman exam with routine gynecological exam Ordered: 06/02/2024 [facility] Work Phone: Comment on above: Ordered: 06/02/2024 Human papilloma viru s DNA [Presence] in Unspecified specimen by Probe with amplification HPV DNA probe, amplified Microbiology Routine Well woman exam with routine gynecological exam Ordered: 06/02/2024 [facility] Comment on above: Ordered: 06/02/2024 Payers Date Payer Category Payer Self-pay 2023 () [id number] 2023 [employer] ( and others) [id number] 2022 [facility] er [id number] 1986 Unknown [id number] .593 1986 Unknown [id number] [id number] .593 1986 Unknown [id number] [id number] .593 1986 Unknown [id number] 2.16.840.1.958002.3.579.2 .593 1986 Unknown [id number] 2.16.840.1.281863.3.579.2 .593 1986 Unknown [id number] [id number] .593 1986 Unknown [id number] 2.16.840.1.889759.3.579.2 .593 1986 Unknown [id number] 2.16.840.1.755691.3.579.2 .593 1986 Unknown [id number] [id number] .1259 1986 Unknown [id number] [id number] .1259 1959 [employer] ( and others) [id number] 1959 Unknown [id number] 1959 Unknown [id number] Social History Date Type Detail Facility Start: 03-14-2023 Tobacco smoking stat [facility] Never smoked tobacco [facility] Start: 05-21-2023 End: 06-02-2024 Alcoholic beverage intake Lifetime non-drinker (finding) [facility] Start: 03-14-2023 End: 06-02-2024 History of Social function [facility] Start: 03-14-2023 End: 06-02-2024 Tobacco use panel [facility] Start: 1985 Sex assigned at Not on file N [facility] Tobacco smoking stat [facility] Unknown if ever smoked [facility] Work Phone: Start: 06-24-2024 Sex Female (finding) [facility] Start: 1985 Sex Assigned At Female F [facility] History of Present illness Narrative 06-02-2024 Mandi Munroe LPN - 06/02/2024 4:00 PM EST Note Date & Type Note Facility 06-02-2024 History of Presen t illness Narrative Reason for Appointment: Patient ID: Radha Gold is a 39 y.o. female who presents for Well Women Visit Patient presents today for Annual Exam. 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 Pelvic pain in female Social History Tobacco Use Smoking status: Never Smokeless tobacco: Not on file Substance Use Topics Alcohol use: Never Drug use: Never FAMILY HISTORY Family History Problem Relation Name Age of Onset Cancer Mother Hypertension Father Heart disease Father Stroke Father Heart attack Father Kidney cancer Brother Heart disease Maternal Grandmother Heart disease Paternal Grandfather Diabetes Paternal Grandfather SURGICAL HISTORY Past Surgical History: Procedure Laterality Date CERVICAL BIOPSY W/ LOOP ELECTRODE EXCISION FOOT SURGERY KNEE SURGERY arthroscopy REVIEW OF SYSTEMS Review of Systems: Review of Systems Constitutional: Negative. HENT: Negative. Eyes: Negative. Respiratory: Negative. Cardiovascular: Negative. Gastrointestinal: Negative. Genitourinary: Negative. Musculoskeletal: Negative. Skin: Negative. Neurological: Negative. All other systems reviewed and are negative. Hematological: Negative. Endocrine: Negative. Allergic/Immunologic: Negative. OBJECTIVE Objective: Physical Exam Constitutional: Appearance: Normal appearance. She is well-developed. Genitourinary: Vulva normal. Vaginal cuff intact. Cervix is absent. Uterus is absent. Breasts: Breasts are soft. Right: Normal. Cardiovascular: Rate and Rhythm: Normal rate and regular rhythm. Pulmonary: Effort: Pulmonary effort is normal. Breath sounds: Normal breath sounds. Abdominal: General: Bowel sounds are normal. There is no distension. Palpations: Abdomen is soft. Tenderness: There is no abdominal tenderness. There is no guarding or rebound. Musculoskeletal: General: No swelling. Normal range of motion. Right lower leg: No edema. Left lower leg: No edema. Neurological: Mental Status: She is alert and oriented to person, place, and time. Skin: General: Skin is warm and dry. Psychiatric: Mood and Affect: Mood normal. Behavior: Behavior normal. Vitals and nursing note reviewed. Exam conducted with a safety security officer present. Vitals: Estimated body mass index is 44.86 kg/m as calculated from the following: Height as of 07/09/22: 5' 7 . Weight as of this encounter: 286 lb 6.4 oz. BP: 120/82 No LMP recorded (approximate). Patient has had an implant. ASSESSMENT & PLAN ICD-10-CM 1. Well woman exam with routine gynecological exam Z01.419 Pap Smear HPV DNA probe, amplified Annual Exam: Patient presents today for an annual exam. Patient states she is doing well and has no complaints. Pap was obtained without difficulty. Pt to return for mole removal Orders Placed This Encounter Procedures HPV DNA probe, amplified Follow Up: Patient is to return in one year for annual unless needed otherwise. Documented by Mandi Munroe LPN on behalf of: Rajni Oscar DO documented in this encounter [facility] Clinical Note 04-11-2022 Note Date & Type Note Facility 04-11-2022 Note OPERATIVE NOTE OPERATION DATE: 04/11/2022 PROCEDURE: Diagnostic laparoscopy. PREOPERATIVE DIAGNOSIS: Pelvic pain, left ovarian cyst. POSTOPERATIVE DIAGNOSIS: Pelvic pain, left ovarian cyst. ANESTHESIA: General. SURGEON: Rajni Oscar D.O. WATERMASTER: ZOE Torrez URINE OUTPUT: Yellow and clear. [...] Recovery Room in stable condition. ? [facility] Evaluation note Note Date & Type Note Facility Evaluation note Diagnosis Well woman exam with routine gynecological exam Routine gynecological examination documented in this encounter [facility] Evaluation note Note Date & Type Note Facility Evaluation note [facility] Work Phone: Summary Purpose Family History No Family History Records FoundNo Family History Records FoundNo Family History Records FoundNo Family History Records Found Advance Directives No Advanced Directives Records FoundNo Advanced Directives Records FoundNo Advanced Directives Records FoundNo Advanced Directives Records Found Additional Source Comments INFORMATION SOURCE (unrecogn ized section and content) DATE CREATED AUTHOR 06/01/2020 [facility] DATE CREATED AUTHOR AUTHOR'S ORGANIZ ATION 07/12/2022 [facility] DATE CREATED AUTHOR AUTHOR'S ORGANIZ ATION 06/23/2024 [facility] DATE CREATED AUTHOR AUTHOR'S ORGANIZ ATION 06/24/2024 [facility] Reason for Visit (unrecogniz ed section and content) Reason Comments Well Women Visit Care Teams (unrecognized sec tion and content) Team Status: Inactive Member Role Status Dates Rajni Oscar DO Attending Provider Active Start : June 22, 2024 End: June 22, 2024 Goals (unrecognized section and content) Goals may be documented in a n alternate section FOR RECORDS PERTAINING TO PATIENTS WHO ARE [...] BE BASED ON THE PRIMARY CLINICAL RECORDS. [facility]. provides no warranty or guarantee of the accuracy or completeness of information in this document.
== END 2024-06-22 10:46 | disposition home or self-care (01) ==
LOC: LAB 10:45
PROVIDERS: Visit Provider Obstetrics & Gynecology
DX: D22.62 Melanocytic nevi of left upper limb, including shoulder (principal); D22.5 Melanocytic nevi of trunk; N60.82 Other benign mammary dysplasias of left breast
CPT/HCPCS: 88304; 88305